=== PATIENT | female | born 1995 | race Caucasian/White ===

== ENCOUNTER 2016-07-04 19:31 | Emergency (ER) | payer OTHER ==
[2016-07-04] MEDS ORDERED: IOPAMIDOL-300 100 ML VIAL IVP ONE (21:45)
[2016-07-04] MEDS ORDERED: predniSONE 20 MG TABLET PO STA (23:01)
[2016-07-04] MEDS ORDERED: predniSONE 20 MG TABLET ONE (23:10)
== END 2016-07-04 23:18 | disposition home or self-care (01) ==
DX: J10.1 Influenza due to other identified influenza virus with other respiratory manifestations (principal); R10.31 Right lower quadrant pain
CPT/HCPCS: 36415; 74177; 80053; 81001; 81025; 83690; 85025; 87275; 87276; 99284; J7512; Q9967

== ENCOUNTER 2017-02-15 08:46 | Outpatient (CLI) | payer OTHER ==
--- NOTE | 2017-02-15 10:00 | MRI Report ---
EXAM: MRI CERVICAL SPINE WITHOUT CONTRAST EXAM DATE: 02/15/2017 09:32 AM. CLINICAL HISTORY: PARASTHESIA OF SKIN. COMPARISONS: None. TECHNIQUE: Multiplanar, multisequence T1-weighted and fluid-sensitive sequences of the cervical spine without contrast. Other: None. FINDINGS: Neurologic Structures: The visualized posterior fossa structures are unremarkable. No signal abnormal ity in the visualized spinal cord. Alignment: Normal. No scoliosis or spondylolisthesis. Bone Marrow: No gross fractures or bone lesions. No marrow edema. Interspace Levels/Facets: C1-C2: Unremarkable. C2-C3: Unremarkable. C3-C4: Unremarkable. C4-C5: Unremarkable. C5-C6: Unremarkable. C6-C7: Unremarkable. C7-T1: Unremarkable. Musculature: Normal. No edema or fatty atrophy. Other: The paravertebral and prevertebral soft tissues are normal. IMPRESSION: Unremarkable cervical spine MRI. [facility] Referring Provider Line: [phone] SITE ID: [id number]
== END 2017-02-15 08:47 | disposition home or self-care (01) ==
LOC: DI 08:46
DX: R20.2 Paresthesia of skin (principal); M54.2 Cervicalgia
CPT/HCPCS: 72141

== ENCOUNTER 2023-12-13 08:00 | Outpatient (CLI) | payer OTHER ==
[2023-12-14 04:16] LABS: BACTERIAL VAGINOSIS DNA POSITIVE (NEGATIVE); CANDIDA GLABRATA DNA NEGATIVE (NEGATIVE); CANDIDA GROUP DNA NEGATIVE (NEGATIVE); CANDIDA KRUSEI DNA NEGATIVE (NEGATIVE); TRICHOMONAS VAGINALIS DNA NEGATIVE (NEGATIVE)
== END 2023-12-13 23:59 | disposition home or self-care (01) ==
LOC: LAB.N 08:00
PROVIDERS: ATTEND Physician Assistant Medical
DX: B37.9 Candidiasis, unspecified (principal)
CPT/HCPCS: 81514